=== PATIENT | female | born 1995 | race Caucasian/White ===

== ENCOUNTER 2025-10-30 08:58 | Emergency (ER) | payer OTHER, BC ==
[~2025-10-30] VITALS: Ht 160 cm; Wt 134.0 kg
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
[2025-10-30] MEDS: LIDOCAINE 5% TOPICAL PATCH TP ONE (11:44)
[2025-10-30] MEDS: CYCLOBENZAPRINE HCL 10 MG TABLET PO ONE (11:44)
--- NOTE | 2025-10-30 11:50 | HMCIMG ---
EXAM: CR right Hip, 3 View. CLINICAL HISTORY: Right hip pain COMPARISON: None provided. FINDINGS: BONES: No acute fracture or aggressive appearing osseous lesion. JOINTS: No dislocation. The joint spaces are normal. SOFT TISSUES: The soft tissues are unremarkable. IMPRESSION: No acute osseous abnormality. /[place]
[2025-10-30] MEDS ORDERED: NAPR-1194 PO (11:59)
[2025-10-30] MEDS ORDERED: GABA-529 PO (11:59)
[2025-10-30] MEDS ORDERED: LIDO1ADH82 TP (11:59)
[2025-10-30 12:10] VITALS: BP 148/91; PULSE 91; RESP 20; TEMP 98.2; O2SAT 97
--- NOTE | 2025-10-30 12:14 | HMCIMG ---
EXAM: CR Lumbar Spine, 3 View. CLINICAL HISTORY: Lumbar pain COMPARISON: None provided. FINDINGS: BONES: No acute fracture or aggressive appearing osseous lesion. ALIGNMENT: Alignment is within normal limits. No significant scoliosis. DISCS / DEGENERATIVE CHANGES: The disc spaces are preserved. SOFT TISSUES: The soft tissues are unremarkable. IMPRESSION: No acute lumbar spine abnormality evident. /[place]
== END 2025-10-30 12:12 | disposition home or self-care (01) ==
LOC: EDH 08:58
DX: S39.012A Strain of muscle, fascia and tendon of lower back, initial encounter (principal); M25.511 Pain in right shoulder; I10 Essential (primary) hypertension; Z79.899 Other long term (current) drug therapy; Z98.51 Tubal ligation status; W03.XXXA Other fall on same level due to collision with another person, initial encounter; Y93.89 Activity, other specified; Y92.219 Unspecified school as the place of occurrence of the external cause; Y99.0 Civilian activity done for income or pay
CPT/HCPCS: 99284; 84703; 36415; 73502; 72100; 96372; J1885